=== PATIENT | female | born 1960 | race Two or more races ===

== ENCOUNTER 2019-03-31 19:52 | Emergency (ER) | payer OTHER ==
[~2019-03-31] VITALS: Ht 160 cm; Wt 76.2 kg
[~2019-03-31 19:52] MED LIST: ASA325 MG; LEXAPRO20 MG
== END 2019-03-31 22:51 | disposition home or self-care (01) ==
LOC: ER 19:52
DX: R42 Dizziness and giddiness (principal)

== ENCOUNTER 2020-04-21 11:19 | Outpatient (CLI) | payer OTHER | END 2020-04-21 11:24 | disposition home or self-care (01) | LOC: RAD 11:19 | PROVIDERS: ATTEND Orthopaedic Surgery | DX: M25.572 Pain in left ankle and joints of left foot (principal) ==

== ENCOUNTER 2020-04-27 09:40 | Outpatient (CLI) | payer OTHER | END 2020-04-28 10:18 | disposition home or self-care (01) | LOC: MAMO-SONO 09:40 | PROVIDERS: ATTEND Orthopaedic Surgery | DX: M25.572 Pain in left ankle and joints of left foot (principal) ==

== ENCOUNTER 2020-05-12 10:56 | Outpatient (CLI) | payer OTHER | END 2020-05-12 11:07 | disposition home or self-care (01) | LOC: RAD 10:56 | PROVIDERS: ATTEND Orthopaedic Surgery | DX: M25.531 Pain in right wrist (principal); M25.572 Pain in left ankle and joints of left foot | CPT/HCPCS: 73718 ==